=== PATIENT | male | born 1960 | race Caucasian/White ===

== ENCOUNTER 2023-04-18 03:46 | Day surgery (SDC) | payer MEDICARE, OTHER, SELFPAY ==
[2023-04-02 13:30] VITALS: BMI 19.9
--- NOTE | 2023-04-16 10:13 | SUR.PREOP ---
Patient called regarding upcoming procedure. Message left on patient's voicemail regarding appointment times.
--- NOTE | 2023-04-17 16:01 | PM.HPGS ---
History of Present Illness History of Present Illness Consent: Risks, benefits, and alternatives have been discussed and questions answered. Patient agrees to proceed with procedure. Chief complaint: neoplasm screening Narrative: Boaz Greenfield is a 63 year old male Referred for colon cancer screening. Review of Systems Review of Systems: All systems reviewed & are unremarkable except as noted in HPI and below PMFSH Family History Family History Grandparent Diabetes mellitus Father Malignant neoplasm of prostate, Onset Age: 65 Social History Social History Smoking status: Never smoker Second hand tobacco smoke exposure: No Alcohol intake: current Substance use type: does not use Living arrangements: with family Spiritual care concerns: No Meds Home Medications and Allergies Home Medications Medication Instructions Recorded Confirmed Type No Home Medications 04/02/23 04/02/23 History Allergies Allergy/AdvReac Type Severity Reaction Status Date / Time bee venom protein (honey bee) Allergy Unknown Verified 08/07/17 13:09 No Known Allergies Allergy Unknown Unverified 02/18/08 13:50 Exam Resp: Auscultation: clear to auscultation bilaterally Cardio: Rate: regular rate Rhythm: regular rhythm GI: GI Palp: Yes Soft to palpation and No Tenderness to palpation present (GI) Assessment and Plan Assessment and plan (1) Colon cancer screening: Code(s): Z12.11 - Encounter for screening for malignant neoplasm of colon Status: Acute Assessment and Plan: Colonoscopy with possible biopsy or polypectomy or cautery or injection of substances.
[2023-04-18 09:50] VITALS: BP 138/85; PULSE 61; RESP 18; TEMP 36.2; O2SAT 100
--- NOTE | 2023-04-18 09:54 | P.PNAN_ITS ---
Anes - Initial Pre Proc Eval Procedure: Operation Date: 04/18/23 10:30 Proposed Procedures p Screening Colonoscopy - Alo Mcintosh MD Date/Time: 04/18/23 09:54 Surgeon: Alo Mcintosh MD Pre Op Diagnosis: neoplasm screening Patient Data Age: 63 Gender: M Height: 1.75 m Weight: 61.4 kg Last Vital Signs Temp 36.2 C L 04/18/23 09:50 Pulse 61 04/18/23 09:50 Resp 18 04/18/23 09:50 BP 138/85 04/18/23 09:50 Pulse Ox 100 04/18/23 09:50 O2 Del Method Room Air 04/18/23 09:50 Allergies Allergy/AdvReac Type Severity Reaction Status Date / Time bee venom protein (honey bee) Allergy Unknown Verified 08/07/17 13:09 No Known Allergies Allergy Unknown Unverified 02/18/08 13:50 Home Medications Medication Instructions Recorded Confirmed Type No Home Medications 04/02/23 04/18/23 History Patient hx anesthesia problems: none Family hx anesthesia problems: none Results Review: All pre-operative results and documents have been reviewed as part of the pre- operative evaluation. [facility] Past Medical History Medical History (Updated 04/18/23 @ 09:54 by Mariano Mars MD) Melanoma Surgical History Surgical History (Updated 04/18/23 @ 09:54 by Mariano Mars MD) H/O melanoma excision Family History Family History Grandparent Diabetes mellitus Father Malignant neoplasm of prostate, Onset Age: 65 Social History Social History Smoking status: Never smoker Second hand tobacco smoke exposure: No Alcohol intake: current Substance use type: does not use Living arrangements: with family Spiritual care concerns: No Anes - Eval Final PreProcedure Day of Procedure 04/18/23 09:54 Patient weight: normal Heart: regular rate and rhythm Lungs: clear to auscultation Airway: Mallampati scale class II Neurological: alert and oriented Last oral intake: >/= 8 hours ASA classification: II Emergent: no Anesthetic plan: proceed Anesthesia type and monitoring: general GIVS and standard monitoring Results Review: All pre-operative results and documents have been reviewed as part of the pre- operative evaluation. Informed Consent: The patient's anesthetic plan and its attendant risks and benefits were discussed with the patient/family/POA. Questions were solicited and answers provided to the satisfaction of the patient/family/POA.
[2023-04-18] MEDS: LACTATED RINGERS 1,000 ML 150 ML IV CONT (10:01)
[2023-04-18] MEDS: SIMETHICONE ORAL SUSPENSION 20 MG/0.3 ML 30 ML BOTTLE 0.6 ML IRRIGATION (10:24)
[2023-04-18 10:40] VITALS: BP 138/85; PULSE 62; RESP 24; O2SAT 100
[2023-04-18 10:50] VITALS: BP 101/68; PULSE 55; RESP 16; O2SAT 100
[2023-04-18 11:00] VITALS: BP 109/72; PULSE 57; RESP 16; O2SAT 100
== END 2023-04-18 11:15 | disposition home or self-care (01) ==
PROVIDERS: PCP Family Medicine; Visit Provider Internal Medicine Gastroenterology
PROC: 0DJD8ZZ Inspection of Lower Intestinal Tract, Via Natural or Artificial Opening Endoscopic (ICD-10-PCS; CPT 45378; principal; 2023-04-18 10:30)
DX: Z12.11 Encounter for screening for malignant neoplasm of colon (principal); K64.8 Other hemorrhoids; F10.90 Alcohol use, unspecified, uncomplicated
CPT/HCPCS: G0121; J2704; J7120

== ENCOUNTER 2025-03-11 14:36 | Outpatient (CLI) | payer MEDICARE, SELFPAY ==
--- OUTSIDE RECORDS SUMMARY | 2025-03-11 14:47 | XMS_ITS | Clinical Summary ---
Author Organization [facility] Address [address] [place] [address] Care Team Providers Care Email Marketing Specialist Name Role Phone Unavailable Primary Care Provider Unavailabl e Source Comments [facility],non-owned Affiliates and Associated Physician Practices is amultiple site organization consisting of ambulatory clinics and hospital sitesin [place], [place], [place] and [place]. This disclosure is being madepursuant to the Care Everywhere program and may not contain all information available regarding this patient. Last updated 18.[facility] Social History Tobacco Use Types Packs/Day Years Used Date Smoking Tobacco: Never Assessed Sex and Gender Information Value Date Recorded Sex Assigned at Not on file Legal Sex Male 10:35 AM CDT Gender Identity Not on file Sexual Orientation Not on file Plan of Treatment Health Maintenance Due Date Last Done Comments COLOGUARD (AGES 45-75) - COL ON CA SCREENING 1958 COLON MONITORING 1958 COLONOSCOPY - COLON CA SCREENING 1958 CT COLONOGRAPHY - COLON CA SCREENING 1958 Colorectal Cancer Screening 1958 FIT - COLON CA SCREENING 1958 FLEX SIG - COLON CA SCREENING 1958 LIPID TESTING 1958 HEPATITIS C SCREENING 01/24/1976 DTAP/TDAP/TD VACCINES (1 - Tdap) 1977 PNEUMOCOCCAL VACCINE 50+ (1 of 1 - PCV) 01/29/2008 ZOSTER VACCINE (1 of 2) 01/29/2008 DEPRESSION SCREENING 05/05/2024 COVID-19 VACCINE ( - 2023-2 5 season) 2025 INFLUENZA VACCINE (#1) 2025 Respiratory Syncytial Virus (RSV) Vaccine Pt: or over 60 yrs (1 - 1-dose 75+ series) 2033 HEPATITIS B VACCINE Aged Out No longe r eligible based on patient's age to complete this topic HIB VACCINE Aged Out No longer eligi ble based on patient's age to complete this topic HPV VACCINE Aged Out No longer eligi ble based on patient's age to complete this topic MENINGOCOCCAL (Group B) VACC INE SHARED DECISION-MAKING Aged Out No longer eligibl e based on patient's age to complete this topic MENINGOCOCCAL GROUPS A/C/Y/W VACCINE Aged Out No longer eligible b ased on patient's age to complete this topic
--- OUTSIDE RECORDS SUMMARY | 2025-03-11 14:47 | XMS_ITS | Data Portability ---
Author Organization [place] - [facility] [place], Main Office Address [address] [place] [address] Assessment No assessment recorded. Plan of Treatment Reminders Order Date Submit Date Provider Last Modified By Organization Details Last Modified Time Details Appointments None recorded. Lab PSA, serum or plasma 2022 023 [facility] (Lab), [address] [place], [address], 3 11:06:05 lipid panel, serum 2022 023 [facility] (Lab), [address] [place], [address], 3 14:13:30 CMP, serum or plasma 2022 023 [facility] (Lab), [address] [place], [address], 3 14:13:40 Referral None recorded. Procedures colonoscopy screening (PROC) 2022 023 [email or web address] 256 Alo Mcintosh MD, [address], [address], [place], [address], 3 09:38:31 Surgeries None recorded. Imaging electrocard iogram 2022 023 [email or web address] 2 [facility], [address] [place] [address], [place], [address], 3 09:48:33 Medication Orders None recorded. Patient TargetsNo targets recorded. Patient Instructions Encounter Date Encounter Id Patient Instructions Last Modified By Organization Details Last Modified Time 01/27/2023 [id number] dementia rating scale-2* [email or web address] Not available 01/27/2023 11:04:43 alcohol misuse* [email or web address] Not available 01/27/2023 11:04:57 depression screening* [email or web address] Not available 01/27/2023 11:05:02 multi-dimensiona l health assessment questionnaire* [email or web address] Not available 01/27/2023 11:04:51 Personalized a lt Plan and Screening Recommendations Advance Directives - Do you have one? Yes You have indicated that you are capable of preparing your advance care directive Advance Directives - Do we have your advance directive on file in your health record? Primary Prevention/Interven tion (prevents or decreases the chance of common diseases from occurring) Smoking Risk: Non Smoker I have no recommendations. Alcohol Misuse Screening: Negative I have no recommendations. Weight: Appropriate Physical activity: Appropriate physical activity Nutrition: Good Fall Risk (screened today): Low Vaccines Pneumococcal: Recommended at age 65 Influenza: Your next one in the fall of this year Chronic Disease Risks Stroke: Low Risk I have no recommendations Heart Attack: Low risk I have no recommendations Clogging of the Arteries: Low risk I have no recommendations Diabetes: Low Risk I have no recommendations Secondary Prevention/Interven tion (detects treatable diseases before they may cause symptoms, disability, or ) Prostate Cancer Screening: PSA recommended No digital rectal exam screening necessary Colon Cancer Screening: Colonoscopy Recommended Date Screening Last Performed: Patient stated his last colonoscopy was at age 48. Eye Disease Screening: Recommended today Dementia Risk: Low I have no recommendations Depression Screening: Negative I have no recommendations. [email or web address] Not available 01/24/2023 14:23:29 Reason for Referral None Reported. Results Created Date Observation Date Name Description Value Unit Range Abnormal Flag Note LastModifiedBy Organization Detail LastModifiedTime 01/28/2001/27/2023 LIPID PANEL cholesterol 229 mg/dL 140-19 9 high [facility] ARIANA NSUS RECOM MENDA TION FOR SHAHAB STERO L: ADULT CHILD LOW RISK: <200 <170 BORDE RLINE : <200- 239 ----- HIGH RISK: >240 >200 Not Available [facility] (Lab) [address] [place], [address], 01/27/2023 14:13:30 01/28/20 23 01/27/2023 LIPID PANEL triglyceride s 66 mg/dL 0-150 NIH ARIANA NSUS REPOR T RECOM MENDA TION FOR TRIGL YCERI AFTAB: ADULT CHILD LOW RISK: <150 ----- BODER LINE: 150-1 99 ----- HIGH RISK: >200 ----- Not Available [facility] (Lab) [address] [place], [address], 01/27/2023 14:13:30 01/28/20 23 01/27/2023 LIPID PANEL HDL cholesterol 92 mg/dL 40- Not Available [facility] (Lab) [address] [place], [address], 01/27/2023 14:13:30 01/28/20 23 01/27/2023 LIPID PANEL LDL cholesterol, calculated 124 mg/dL 0-130 NIH ARIANA NSUS REPOR T RECOM MENDA TIONS FOR LDL: ADULT CHILD LOW RISK <130 <110 (OPTI MAL LDL) <100 ----- BORDE RLINE : 130-1 59 ----- HIGH RISK: >160 >130 A TRIGL YCERI DE RESUL T >400 INVAL IDATE S THE CALCU LATIO N FOR LDL FRACT IONAT ION - THE LDL RESUL T WILL NOT BE REPOR UZAIR. Not Available [facility] (Lab) [address] [place], [address], 01/27/2023 14:13:30 01/28/20 23 01/27/2023 COMPR EHENS JESSY METAB OLIC PANEL sodium 135 mmol/ L 137-14 5 low Not Available [facility] (Lab) [address] [place], [address], 01/27/2023 14:13:40 01/28/20 23 01/27/2023 COMPR EHENS JESSY METAB OLIC PANEL potassium 4.3 mmol/ L 3.5-5. 1 Not Available [facility] (Lab) [address] [place], [address], 01/27/2023 14:13:40 01/28/20 23 01/27/2023 COMPR EHENS JESSY METAB OLIC PANEL chloride 100 mmol/ L 98-107 Not Available [facility] (Lab) [address] [place], [address], 01/27/2023 14:13:40 01/28/20 23 01/27/2023 COMPR EHENS JESSY METAB OLIC PANEL carbon dioxide 28 mmol/ L 22-30 Not Available [facility] (Lab) [address] [place], [address], 01/27/2023 14:13:40 01/28/20 23 01/27/2023 COMPR EHENS JESSY METAB OLIC PANEL anion gap 11.3 mmol/ L 14-22 low Not Available [facility] (Lab) [address] [place], [address], 01/27/2023 14:13:40 01/28/20 23 01/27/2023 COMPR EHENS JESSY METAB OLIC PANEL glucose 96 mg/dL 70-99 Not Available [facility] (Lab) [address] [place], [address], 01/27/2023 14:13:40 01/28/20 23 01/27/2023 COMPR EHENS JESSY METAB OLIC PANEL BUN 14 mg/dL 8-19 Not Available [facility] (Lab) [address] [place], [address], 01/27/2023 14:13:40 01/28/20 23 01/27/2023 COMPR EHENS JESSY METAB OLIC PANEL creatinine 0.97 mg/dL 0.66-1 .25 Not Available [facility] (Lab) [address] [place], [address], 01/27/2023 14:13:40 01/28/20 23 01/27/2023 COMPR EHENS JESSY METAB OLIC PANEL GFR >60 Refer ence Range : [place] ge GFR Healt hy Adult : >60 mL/mi n/1.7 3 m2 Chron ic Kidne y Disea se: 15-60 mL/mi n/1.7 3 m2 Kidne y Failu re: <15/m L/min /1.73 m2 www.n iddk. nih.g ov The MDRD study equat ion has not been valid ated in child carol <18 years of age; pregn ant women ; the elder ly >85 years of age; or in some racia l or ethni c subgr oups, such as Hispa nics. Outsi de the valid ated fabienne eters , estim ated GFR is less accur ate, requi ring clini kristal judgm ent on a case- by-ca se basis . Clini kristal inter preta tion for other races and ages must be made by the clini radha. The MDRD study equat ion has not been valid ated for the evalu ation of serum creat inine relat ed to nutri zohaib l statu s or medic ation usage . For perso ns <18 years of age, a pedia tric GFR calcu lator is avail able on the [facility] websi te: https ://tien w.kenneth zacarias.o robyn/pr ofess ional s/kdo qi/gf r_cal culat or Not Available [facility] (Lab) [address] [place], [address], 01/27/2023 14:13:40 01/28/20 23 01/27/2023 COMPR EHENS JESSY METAB OLIC PANEL alkaline phosphatase 68 U/L 38-126 Not Available [facility] (Lab) [address] [place], [address], 01/27/2023 14:13:40 01/28/20 23 01/27/2023 COMPR EHENS JESSY METAB OLIC PANEL alanine aminotransfe rase 15 U/L 0-50 Not Available [facility] (Lab) [address] [place], [address], 01/27/2023 14:13:40 01/28/20 23 01/27/2023 COMPR EHENS JESSY METAB OLIC PANEL aspartate aminotransfe rase 22 U/L 15-46 Not Available [facility] (Lab) [address] [place], [address], 01/27/2023 14:13:40 01/28/20 23 01/27/2023 COMPR EHENS JESSY METAB OLIC PANEL bilirubin, total 0.70 mg/dL 0.20-1 .30 Not Available [facility] (Lab) [address] [place], [address], 01/27/2023 14:13:40 01/28/20 23 01/27/2023 COMPR EHENS JESSY METAB OLIC PANEL calcium 9.5 mg/dL 8.4-10 .2 Not Available [facility] (Lab) [address] [place], [address], 01/27/2023 14:13:40 01/28/20 23 01/27/2023 COMPR EHENS JESSY METAB OLIC PANEL total protein 7.0 g/dL 6.3-8. 2 Not Available [facility] (Lab) [address] [place], [address], 01/27/2023 14:13:40 01/28/20 23 01/27/2023 COMPR EHENS JESSY METAB OLIC PANEL albumin 4.1 g/dL 3.0-4. 4 Not Available [facility] (Lab) [address] [place], [address], 01/27/2023 14:13:40 01/28/20 23 01/27/2023 COMPR EHENS JESSY METAB OLIC PANEL globulin 2.9 g/dL 2.6-4. 2 Not Available [facility] (Lab) [address] [place], [address], 01/27/2023 14:13:40 01/28/20 23 01/27/2023 COMPR EHENS JESSY METAB OLIC PANEL A/G ratio 1.4 ratio 1.0-2. 0 Not Available [facility] (Lab) [address] [place], [address], 01/27/2023 14:13:40 01/28/20 23 01/29/2023 PSA SCREE N ([facility]) prostate specific Ag, serum 2.7 NG/mL 0.0-4. 0 [place] ECLIA metho dolog y. . Accor ding to the Ameri can Urolo gical Assoc iatio n, Serum PSA shoul d decre ase and remai n at undet ectab le level s after radic al prost atect magdiel. The AUA defin es bioch emica l recur rence as an initi al PSA value 0.2 ng/mL or great er follo wed by a subse quent confi rmato ry PSA value 0.2 ng/mL or great er. Value s obtai елена with diffe rent assay metho ds or kits canno t be used inter amato eably . Resul ts canno t be inter prete d as absol navajo evide nce of the prese nce or absen ce of huy blackman se. Perfo rmed at: [place] [address] Lab Direc tor: Santino collazo PhD, Phone : [phone] Not Available [facility] (Lab) [address] [place], [address], 01/29/2023 09:13:33 Result Notes None recorded. Problems No Known Problems Procedures Surgical History Date Name Laterality Status Provider Name and Address Organization Details Recorded Time Medicare Wellness CPT Code, Welcome completed Britany Alexander RN [place] - [facility] [employer] 01/24/2023 14:19:33 Imaging Results None recorded. Procedure Notes None recorded. Medical Equipment None Reported. Allergies No known drug allergies Medications Name Sig Start Date Stop Date Status Note LastModified by Organization Details LastModified Time Medrol (Eliu) 4 mg tablets in a dose pack use as directed 01/27 completed Not Available Not Available Not Available triamcinolo ne acetonide 0.1 % topical cream APPLY THIN COAT TO AFFECTED AREA TWICE A DAY 01/27 completed Not Available Not Available Not Available Vitals Date Recorded Body mass index (BMI) Body height Oxygen saturation Oxygen saturation in Arterial blood by Pulse oximetry Heart rate Body temperature Body weight Systolic And Diastolic Provider Name and Address Organization Details Last Updated DateTime 1 21.4 kg/m2 175.26 cm 98 % 98 % 69 /min 96.9 [degF] 69266.8 9 g 128/80 mm[Hg] Not Available [facility] 3 22:43:50 Date Recorded Body weight Body mass index (BMI) Body height Body temperature Heart rate Oxygen saturation Oxygen saturation in Arterial blood by Pulse oximetry Systolic And Diastolic Provider Name and Address Organization Details Last Updated DateTime 3 87397.7 5 g 20.1 kg/m2 176.53 cm 97.1 [degF] 61 /min 98 % 98 % 118/72 mm[Hg] Tresa marquez CMA [place] [facility] [place] [employer] [facility] 3 10:14:01 Social History Question Answer Notes LastModified by [employer] Details LastModified Time Tobacco Smoking Status Never Smoker Not Available [facility] 07/03/2022 22:42:43 In The 14 Days Before Symptom Onset, Have You Had Close Contact With A Laboratory-confirm ed COVID-19 While That Case Was Ill? No [id number] Information not available 07/03/2022 In The 14 Days Before Symptom Onset, Have You Had Close Contact With A Person Who Is Under Investigation For COVID-19 While That Person Was Ill? No [id number] Information not available 07/03/2022 Sex: Unknown Functional Status Question Answer Note LastModified by [employer] Details LastModified Time What is your level of alcohol consumption? Moderate [id number] Information not available 07/03/2022 Mental Status None recorded. Family History Relationship Description Onset Age of this Age Resolved Age Notes LastModified by Organization Details LastModified Time Father Family history of malignant neoplasm [id number] Not available 07/03/2022 22:43:10 Paternal Uncle Family history of malignant neoplasm [id number] Not available 07/03/2022 22:43:10 Paternal Aunt Family history of malignant neoplasm [id number] Not available 07/03/2022 22:43:10 Medical History Condition Response BLINDNESS N RHEUMATIC FEVER N KIDNEY STONES N BLADDER PROBLEMS N OTHER # 1 N POLIO N LUNG DISEASE/DISORDER N RADIATION / CHEMOTHERAPY N COPD N Other # 2 N BLOOD DISEASES N SURGERY N EAR OR HEARING PROBLEMS N MUMPS N BOWEL PROBLEMS N FEMALE PROBLEMS / INFECTIONS N DEPRESSION (INCLUDING POST ) N STROKE/TIA N THYROID DISEASE N ULCERS N BENIGN PROSTATIC HYPERPLASIA N MEASLES N CERVICALGIA N TB SKIN TEST N MYOCARDIAL INFARCTION N PARAPELGIA N OBESITY N GERD/NAUSEA N ANEURYSM N URINARY/BLADDER/KIDNEY PROBLEMS N INPATIENT PSYCH CARE N CORONARY ARTERY DISEASE (CAD) N MENIERE'S DISEASE N ADDICTION CONCERNS N ENDOMETRIOSIS N USE OF BLOOD THINNERS N SKIN PROBLEMS Y EMPHYSEMA N GASTROINTESTINAL DISORDER N MUSCLE,JOINT OR BONE PROBLEMS N GASTROINTESTINAL BLEEDING N BLOOD CLOTS N ASTHMA N CATARACTS N ERECTILE DYSFUNCTION N GI PROBLEMS N CHF N Low Testosterone N NEUROPATHY N INFERTILITY N AIDS/HIV N FRACTURES N VISION/EYE PROBLEMS N LIVER DISEASE N MALE HYPOGONADISM N HYPERTENSION N ANXIETY DISORDER N BLOOD TRANSFUSION N ANEMIA/BLOOD DISORDER N CHRONIC EAR INFECTIONS N BRONCHITIS N TUBERCULOSIS N GLAUCOMA N FOOT PROBLEM N DIVERTICULITIS N CHICKENPOX N SLEEP APNEA N ALLERGIES/HAYFEVER N INFECTIOUS DISEASE N HEART ARRHYTHMIA N PROSTATE N INSOMNIA N HIGH CHOLESTEROL / HYPERLIPIDEMIA N HYPERTHYROIDISM N EYE PROBLEMS N EATING DISORDER N NEUROLOGICAL PROBLEMS N EDEMA N CHRONIC PAIN SYNDROME N HYPOTHYROIDISM N CAROTID BLOCKAGE N CONSTIPATION N BACK / NECK PROBLEMS N HAVE YOU BEEN HOSPITALIZED OR SEEN IN [facility] IN THE PAST YEAR ? N ATHEROSCLEROSIS N BREAST PROBLEMS N DIALYSIS N ECZEMA N FIBROMYALGIA N OSTEOPOROSIS N ARTHRITIS N NO SIGNIFICANT PAST MEDICAL HISTORY N APPENDICITIS N DIABETES, TYPE N BAD TEETH N HEARTBURN / REFLUX N ADD/ADHD N AUTISM SPECTRUM DISORDER (ASD) N HEPATITIS / LIVER DISEASE N PULMONARY DISEASE N GOUT N SLEEP DISORDER Y ALZHEIMER'S DISEASE N PAIN N HERPES N DEMENTIA N HEADACHES/MIGRAINES N SEIZURES/EPILEPSY N VASCULAR DISEASE N PACEMAKER N DIZZINESS N HEART DISEASE/HEART PROBLEMS N KIDNEY DISEASE N DEVELOPMENTAL OR BEHAVIORAL DISORDERS N MULTIPLE SCLEROSIS N SCARLET FEVER N MENTAL DISORDER/ILLNESS N CARDIAC ARRHYTHMIA N CANCER: SPECIFY Y ANESTHESIA COMPLICATIONS N PNEUMONIA N ATRIAL FIBRILLATION N PULMONARY EMBOLISM N AUTOIMMUNE DISEASE N Past Encounters Encounter ID Performer Location Encounter Start Date Encounter Closed Date Diagnosis/Indication Diagnosis SNOMED-CT Code Diagnosis ICD10 Code Diagnosis IMO Codes Diagnosis Note [id number] Alonzo Mas MD [facility] [place] [address] [place] [address] 07/14/2020 00:00:00 07/14/2020 16:27:57 [id number] Alonzo Mas MD [facility] Mary Alice rocha [address] [place] [address] 01/27/2023 09:51:40 01/27/2023 10:37:44 Adult health examination 656923336 Z00.00 Screening for disorder 345855320 Z13.9 Screening for cardiovascular system disease 328190523 Z13.6 Screening for malignant neoplasm of colon 317382260 Z12.11 Screening for malignant neoplasm of prostate 182194100 Z12.5 Health Concerns Section Related Observation LastModified by Organization Detai ls LastModified Time None Recorded Concern Status LastModified by Organization Details LastModified Time None Recorded Advance Directives Directive None Recorded Payers Insurance Date Sequence Insurance Name Policy Number Policy Tate Covered Member ID Tate Member ID Guarantor Name 09/25/2023 2 UNSPECIFIED REMIT PAYOR Boaz Greenfield 2023 1 [employer] - DOS PRIOR TO 20 - [facility] [employer] Anival Greenfield [id number] Boaz Greenfield 09/25/2023 1 [place] Boaz Bruner [id number] Boaz Greenfield Notes Date Note Type Note Provider Name and Address Organization Details Recorded Time 01/27/2023 text/html Here today for MWV. No complaints. Due for BW. Hx of prostate cancer, in father. Due for colon cancer screening. Wants colonoscopy. Alonzo Mas MD [address] [place] [address], [facility] [address], [place], [address], [facility] 01/27/2023 18:23:11
--- OUTSIDE RECORDS SUMMARY | 2025-03-11 14:47 | XMS_ITS | Encounter Summary ---
Author Organization [facility] Address [address] [place] [address] Care Team Providers Care Clarifier Operator Name Role Phone Unavailable Primary Care Provider Unavailabl e Encounter Details Date Type Department Care Team (Late st Contact Info) Description 01/09/2024 Lab Requisition [facility] - DermPath Lab [address] [place] [phone] Yehuda Madrigal MD [facility] DERMAT[facility] [address] [place] [phone] Neoplasm of uncertain behavior of skin Social History Tobacco Use Types Packs/Day Years Used Date Smoking Tobacco: Never Assessed Sex and Gender Information Value Date Recorded Sex Assigned at Not on file Legal Sex Male 10:35 AM CDT Gender Identity Not on file Sexual Orientation Not on file documented as of this encounter Plan of Treatment Not on file documented as of this encounter Procedures Procedure Name Priority Date/Time Associated Diagnosis Comments DERMATOPATHOLOGY Routine 01/09/2024 3:33 AM CDT Neoplasm of uncertain behavior of skin documented in this encounter Results * DERMATOPATHOLOGY (01/09/2024 3:33 AM CDT) Case Report Dermatopathology Report Case: [id number] Authorizing Provider: Yehuda Madrigal MD Collected: 01/09/2024 03:33 AM Ordering Location: [facility] - Received: 01/12/2024 11:21 AM DermPath Lab Pathologist: Melania Connell MD Specimen: Skin, left back 4:13 PM CDT DERMATOPATHOLOGY LABORATORY Final Diagnosis Specimen A. SKIN, left back: SUBACUTE SPONGIOTIC DERMATITIS (L30.8) (see microscopic description and comment) 09/11/202 4 4:13 PM CDT DERMATOPATHOLOGY LABORATORY at 1613 CDT Clinical History BCC 4:13 PM CDT DERMATOPATHOLOGY LABORATORY Gross Description Specimen A: Received is one formalin filled container labeled with the patient's name and designated left back. The specimen consists of a shave biopsy measuring 8x5x1 mm. Jar 0. 4:13 PM CDT DERMATOPATHOLOGY LABORATORY Microscopic Description Specimen A. SKIN, left back: There is focal parakeratosis and spongiosis of the epidermis. In the dermis there is a mainly superficial perivascular lymphoid infiltrate with rare eosinophils. Grocott's methenamine silver (GMS) stain fails to highlight fungal elements in the available sections. COMMENT: These histological findings are consistent with an eczematous dermatitis. 4:13 PM CDT DERMATOPATHOLOGY LABORATORY Disclaimer An external and internal positive and negative controls are appropriate for the histochemical, immunohistochemical and immunofluorescence stain(s) in this case (if any), except where stated explicitly. The performance characteristics of the stain(s) cited in this report were developed and its performance characteristic determined by the Dermatopathology Laboratory at [facility], directed by Dr. Vidal Zacarias. These tests need not be, and therefore are not, approved by the [place] Food and Drug Administration. The tests are used for clinical purposes. Billing Codes Specimen Charges Stain Charges 79351 1 40550 1 4 4:13 PM CDT DERMATOPATHOLOGY LABORATORY Embedded Images 4:13 PM CDT DERMATOPATHOLOGY LABORATORY Pathology/Cytolo gy TISSUE SPECIMEN FROM SKIN / Unknown 01/09/2024 3:33 AM CDT 01/12/2024 11:21 AM CDT Yehuda Madrigal MD LAB - PATHOLOGY/CYTOLOGY LAURA GARCIA Final Result DERMATOPATHOLOGY LABORATORY [facility] - Department of Dermatology [address], [address] [phone] documented in this encounter Visit Diagnoses Diagnosis Neoplasm of uncertain behavior of skin documented in this encounter
[2025-03-11 16:11] LABS: Alanine Aminotransferase 13 U/L (6-50); Albumin Level 4.2 g/dL (3.5-5.1); Alkaline Phosphatase 73 U/L (38-126); Anion Gap 7 mmol/L (4-12); Aspartate Amino Transferase 27 U/L (17-59); Bilirubin,Total 0.3 mg/dL (0.2-1.3); Blood Urea Nitrogen 18 mg/dL (9-20); Calcium 8.5 mg/dL (8.4-10.2); Carbon Dioxide 26 mmol/L (22-30); Chloride 103 mmol/L (98-107); Cholesterol 200 mg/dL (0-200); Estimated Glomerular Filt Rate > 60; Glucose 105 mg/dL (65-110); HDL Direct 86 mg/dL; Potassium 4.1 mmol/L (3.4-5.0); Sodium 136 mmol/L (137-145); Total Protein 7.3 g/dL (6.3-8.2); Triglycerides 98 mg/dL (<150)
[2025-03-11 16:46] LABS: Prostate Specific Antigen 3.9 ng/mL (< OR = 4.0)
== END 2025-03-11 14:37 | disposition home or self-care (01) ==
PROVIDERS: PCP Internal Medicine; Visit Provider Internal Medicine
DX: E78.5 Hyperlipidemia, unspecified (principal); Z12.5 Encounter for screening for malignant neoplasm of prostate
CPT/HCPCS: 36415; 80053; 80061; 84153; G0103